=== PATIENT | female | born 1940 | race Caucasian/White ===

== ENCOUNTER 2022-01-28 08:15 | Day surgery (SDC) | payer OTHER ==
[2022-01-24 16:22] LABS: SARS-CoV-2 Antigen Rapid Res Negative (Negative)
--- NOTE | 2022-01-25 08:14 | EKG ---
Test Date: 2022-01-24 Test Time: 15:35:56 [place] Operator: MARYCHUY MEASUREMENT RESULTS: Intervals: Rate: 66 [place]: 222 QRSD: 90 QT: 418 QTc: 438 [place]: P: 69 [place]: 222 QRS: -41 T: 35 INTERPRETIVE STATEMENTS: Sinus rhythm with 1st degree AV block Left axis deviation Low voltage QRS Abnormal ECG No previous ECG available for comparison Electronically Signed On 01-25-22 08:12:07 CDT by Herman Kramer
[2022-01-28] MEDS ORDERED: Ringers Lactate 1,000 ML IV ONE (08:37)
[2022-01-28] MEDS ORDERED: ONDANSETRON 4 MG/2 ML VIAL ONE (10:05)
[2022-01-28] MEDS ORDERED: propofoL 200 MG/20 ML VIAL IV ONE (10:05)
[2022-01-28] MEDS ORDERED: FENTANYL CITR 100 MCG/2 ML ONE (10:05)
[2022-01-28] MEDS ORDERED: LIDOCAINE 1% MPF 5 ML VIAL ONE (10:06)
[2022-01-28] MEDS ORDERED: LIDOCAINE 1% W/EPI 1:100,000 10 ML VIAL ONE (10:15)
[2022-01-28] MEDS ORDERED: EPHEDRINE SULF 50 MG/ML VIAL ONE (10:39)
[2022-01-28] MEDS ORDERED: dexAMETHasone 10 MG/ML VIAL ONE (10:44)
--- NOTE | 2022-01-28 11:14 | P.OP ---
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 Suture latif 12:00 Findings: Atrophy of the platysma muscle Operative Technique: After adequate plane of anesthesia, the head was turned to the right for exposure of the left neck. The prior biopsy site including scar was noted. The surrounding area was injected with a total of 5 mL of 1% lidocaine with epinephrine. The skin of the left face and neck were prepped with Betadine and draped in a sterile fashion. A 5 to 10 mm margin was marked circumferentially a round the existing scar. A fusiform incision was then designed to encompass all of the necessary margins, and lay in an orientation such that the planned closure would be cosmetically aesthetic in conjunction with the relaxed skin tension lines of the neck. A 15 blade scalpel was used to incise through the skin and subcutaneous tissue along the marked incision. Bovie electrocautery was then used to elevate the skin and subcutaneous tissue, underlying soft tissue. The deep plane of dissection was along the superficial surface of the sternocleidomastoid muscle. No significant platysmal tissue was noted during the dissection. A small amount of salivary tissue was noted in the anterior aspect of dissection. The greater auricular nerve was sacrificed as part of the resection to ensure adequate deep plane. Additional deep margin involving the muscle was not performed due to the lack of invasion on prior biopsy. There was no evidence of gross extension of mass or pigmented tissue noted in the plane of dissection. The specimen was then completely removed and marked with a suture at the superiormost aspect indicating 12:00. This will be sent for permanent section only in light of the prior melanoma in situ diagnosis The surrounding tissues were then undermined using Bovie electrocautery in order to allow for tissue advancement over the defect. The total size of the defect m easured 6 x 3 cm. After elevation of surrounding tissue, the tissues were advanced over the fusiform excision and secured using 4-0 Vicryl deep sutures. The skin was then closed in a running fashion using 5-0 fast-absorbing gut. The area was cleaned and dried, antibiotic ointment was applied to the incision and the patient was returned to care of anesthesia for awakening, extubation and transportation to the recovery room. Implants: None Fluids & blood products: crystalloid 350ml Transferred to: Recovery Room (None) Condition: Good
[2022-01-28 11:19] VITALS: O2SAT 100
[2022-01-28 13:45] VITALS: BP 14/58; TEMP 97.4
== END 2022-01-28 12:59 | disposition home or self-care (01) ==
LOC: OR 08:15
PROVIDERS: ATTEND Otolaryngology
PROC: 0JB50ZZ Excision of Left Neck Subcutaneous Tissue and Fascia, Open Approach (ICD-10-PCS; 2022-01-28)
PROC: 0JX Subcutaneous Tissue and Fascia, Transfer (ICD-10-PCS; principal; 2022-01-28 10:45)
DX: D03.4 Melanoma in situ of scalp and neck (principal); L82.1 Other seborrheic keratosis; L90.5 Scar conditions and fibrosis of skin; Z20.822 Contact with and (suspected) exposure to COVID-19
CPT/HCPCS: 93005; 36415; 88305; 87811; 14040; J2704; J3010; J1100; J7120; J2405; J2001